=== PATIENT | female | born 1985 | race Caucasian/White ===

== ENCOUNTER 2022-07-01 02:48 | Observation (INO) ==
[2022-07-01] MEDS ORDERED: SODIUM CHLORIDE 0.9% 1000ML 1,000 ML IV STA (03:13)
[2022-07-01] MEDS ORDERED: FAMOTIDINE 20MG IV PUSH 20 MG/5 ML SYR IV STA (03:13)
[2022-07-01] MEDS ORDERED: ONDANSETRON INJ 2 MG/ML 2 ML VIAL IV STA (03:13)
--- NOTE | 2022-07-01 03:24 | Emergency Department Note ---
History of Present Illness General Chief complaint: Abdominal Pain Stated complaint: SEVERE ABDOMINAL PAIN Time Seen by Provider: 07/01/22 03:08 History of Present Illness Maximum Pain Intensity: 9 This 37-year-old female presents to the ER complaint of nausea vomiting abdominal pain and some diarrhea that has been intermittent for the past 3 weeks. Patient denies chest pain, dyspnea, fevers, flulike illness. No prior abdominal surgeries. Allergies Allergy/AdvReac Type Severity Reaction Status Date / Time No Known Allergies Allergy Unverified 07/01/22 10:25 Past Med/Surg History Social History Smoking Status: Never smoker Hx Alcohol Use: Yes Hx Substance Use: No Preferred Language: [place] Communication Ability: Effective Linseed Oil Temperer Required: No Beliefs That Will Affect Care: None Current Living Situation: Spouse Feels Safe at Home: Yes Assistive Devices: None Review of Systems A total of 10 systems reviewed and were otherwise negative Physical Exam Vital Signs Vital Signs - 24 hr 07/01/22 03:00 07/01/22 03:55 07/01/22 04:00 Temperature 36.0 C L Temperature Source Temporal Artery Scan Pulse Rate 59 L 57 L Pulse Rate [Apical] 55 L Respiratory Rate 18 16 Respiratory Depth Normal Blood Pressure 121/75 Blood Pressure [Right Arm] 117/75 Blood Pressure Mean 90 Blood Pressure Mean [Right Arm] 89 Pulse Oximetry 100 100 Oxygen Delivery Method Room Air Room Air Sepsis Recent Fever Within 48 Hours No Sepsis New/Unexplained Change in Mental Status N/A Sepsis Action Taken by Nursing No Action Required 07/01/22 05:30 Temperature Temperature Source Pulse Rate Pulse Rate [Apical] 60 Respiratory Rate 16 Respiratory Depth Blood Pressure Blood Pressure [Right Arm] 126/79 Blood Pressure Mean Blood Pressure Mean [Right Arm] 94 Pulse Oximetry 100 Oxygen Delivery Method Room Air Sepsis Recent Fever Within 48 Hours Sepsis New/Unexplained Change in Mental Status Sepsis Action Taken by Nursing VITALS: Vitals are noted on the nurse's note and reviewed by myself. Vital signs stable. GENERAL: Pleasant female, in no acute distress, nondiaphoretic, well-developed well-nourished. SKIN: The skin was without rashes, erythema, edema, or bruising. There is no tenting of the skin. Capillary reflex less than 2 seconds. HEAD: Normocephalic atraumatic. EARS: External auditory canals clear, tympanic membranes pearly newton without erythema or effusion bilaterally. EYES: Pupils equal round and reactive to light and accommodation. Conjunctivae without injection, sclerae without icterus. Extraocular movements intact. NOSE: Patent, turbinates without inflammation or discharge. No sinus tenderness. MOUTH: Mucous membranes mildly dry. Pharynx without erythema or exudate. Uvu la midline. Airway patent. Tongue does not deviate. NECK: Supple without nuchal rigidity. No lymphadenopathy. No thyromegaly. Cervical spine is nontender. No JVD. HEART: Regular rate and rhythm LUNGS: Clear to auscultation bilaterally without wheezes, rales or rhonchi. No retractions or accessory muscle use. ABDOMEN: Positive bowel sounds x 4. Normal tympanic percussion. Soft, tender m id abdomen, without masses or organomegaly. Arredondo sign negative. No guarding or rebound tenderness. No CVA tenderness MUSCULOSKELETAL: No muscle atrophy, erythema, or edema noted. NEURO: Patient was alert and oriented to person place and time. Normal sensation to light and sharp touch. No focal neurological deficits. Course Administered Medications Dextrose/Sodium Chloride (D5w And 1/2nss) 1,000 mls @ 125 mls/hr IV .Q8H JESSICA Stop: 07/31/22 08:43 Last Admin: 07/02/22 01:06 Dose: 125 mls/hr Documented By: Infusion: 07/02/22 01:06 Dose: 125 mls/hr Documented By: Admin: 07/01/22 17:24 Dose: 125 mls/hr Documented By: Infusion: 07/01/22 17:06 Dose: 125 mls/hr Documented By: [email or web address] Admin: 07/01/22 09:06 Dose: 125 mls/hr Documented By: [id number] Piperacillin Sod/Tazobactam (Sod 3.375 gm/ Dextrose) 115 mls @ 28.75 mls/hr IV Q8H JESSICA; Protocol Stop: 07/11/22 11:29 Last Infusion: 07/01/22 23:31 Dose: 0 mls/hr Documented By: Admin: 07/01/22 19:30 Dose: 28.8 mls/hr Documented By: Infusion: 07/01/22 16:05 Dose: 0 mls/hr Documented By: Admin: 04/17/23 12:00 Dose: 28.8 mls/hr Documented By: [id number] Ondansetron HCl (Ondansetron Inj 2 Mg/Ml 2 Ml Vial) 4 mg IV Q6H PRN PRN Reason: Nausea Stop: 07/31/22 08:43 Last Admin: 07/01/22 08:50 Dose: 4 mg Documented By: [id number] Discontinued Medications Sodium Chloride (Nss 1000ml) 1,000 mls @ 999 mls/hr IV .Q1H1M STA Stop: 07/01/22 04:13 Last Infusion: 07/01/22 04:52 Dose: 0 mls/hr Documented By: Admin: 07/01/22 03:41 Dose: 999 mls/hr Documented By: JULIO Famotidine (Pepcid 20mg Iv Push) 20 mg in 5 mls @ 2.5 mls/min IV NOW STA Stop: 07/01/22 03:14 Last Admin: 07/01/22 03:42 Dose: 2.5 mls/min Documented By: JULIO Piperacillin Sod/Tazobactam Sod (Zosyn) 4.5 gm in 120 mls @ 240 mls/hr IV NOW ONE Stop: 07/01/22 05:05 Last Infusion: 07/01/22 06:02 Dose: 0 mls/hr Documented By: Admin: 07/01/22 05:25 Dose: 240 mls/hr Documented By: JULIO Potassium Chloride (K Jeromy / Wtr) 10 meq in 100 mls @ 100 mls/hr IV Q1H JESSICA Stop: 07/01/22 10:43 Last Infusion: 07/01/22 11:30 Dose: 0 mls/hr Documented By: [id number] Admin: 07/01/22 10:24 Dose: 100 mls/hr Documented By: [id number] Infusion: 07/01/22 10:07 Dose: 100 mls/hr Documented By: [id number] Admin: 07/01/22 09:07 Dose: 100 mls/hr Documented By: [id number] Promethazine HCl 6.25 mg/ (Sodium Chloride) 50.25 mls @ 201 mls/hr IV NOW ONE Stop: 07/01/22 10:59 Last Infusion: 07/01/22 11:30 Dose: 0 mls/hr Documented By: [id number] Admin: 07/01/22 10:51 Dose: 201 mls/hr Documented By: [id number] Ioversol (Optiray 350 100ml) 100 ml IV ONCE ONE Stop: 07/01/22 04:50 Last Admin: 07/01/22 04:49 Dose: 83 ml Documented By: [email or web address] Morphine Sulfate (Morphine Sulfate 4 Mg/Ml 1 Ml Carp\Vial) 4 mg IV Q15M PRN PRN Reason: Pain Stop: 07/15/22 03:12 Last Admin: 07/01/22 04:25 Dose: 4 mg Documented By: Admin: 07/01/22 03:41 Dose: 4 mg Documented By: JULIO Ondansetron HCl (Ondansetron Inj 2 Mg/Ml 2 Ml Vial) 4 mg IV NOW STA Stop: 07/01/22 03:14 Last Admin: 07/01/22 03:41 Dose: 4 mg Documented By: JULIO Potassium Chloride (Potassium Chloride Crtab 20 Meq Tabcr) 20 meq PO NOW STA Stop: 07/01/22 08:45 Last Admin: 07/01/22 09:07 Dose: 20 meq Documented By: [id number] Medical Decision Making Medical Records Attestation: I reviewed the patient's medical records. Home Medications Current Medication List: was personally reviewed by me Laboratory Data Attestation: I reviewed the patient's lab results. 07/01/22 03:40 07/01/22 03:40 Lab Results 07/01/22 07/01/22 07/01/22 Range/Units 03:40 03:40 03:40 WBC 5.70 (4.8-10.8) K/ul RBC 4.01 L (4.20-5.40) M/uL Hgb 11.4 L (12.0-16.0) g/dl Hct 33.9 L (37.0-47.0) % MCV 84.5 (80.0-100.0) fL MCH 28.4 (25.0-34.0) pg MCHC 33.6 (32.0-36.0) g/dL RDW Std Deviation 38.8 (36.4-46.3) fL RDW Coeff of Hipolito 12.7 (11.5-14.5) % Plt Count 281 (130-400) K/uL MPV 11.4 (9.4-12.4) fL Immature Gran % (Auto) 0.4 % Neut % (Auto) 74.5 % Lymph % (Auto) 18.2 % Dixon % (Auto) 5.8 % Eos % (Auto) 0.4 % Baso % (Auto) 0.7 % Neut # (Auto) 4.25 (1.40-6.50) K/uL Lymph # (Auto) 1.04 L (1.2-3.4) K/uL Dixon # (Auto) 0.33 (0.11-0.59) K/uL Eos # (Auto) 0.02 (0-0.50) K/uL Baso # (Auto) 0.04 (0-0.2) K/uL Immature Gran # (Auto) 0.02 (0.01-0.20) K/uL Sodium 136 (136-145) mmol/L Potassium 3.3 L (3.5-5.1) mmol/L Chloride 108 H (98-107) mmol/L Carbon Dioxide 22 (21-32) mmol/L Anion Gap 6 (3-11) BUN 12 (6-23) mg/dl Creatinine 0.79 (0.6-1.2) mg/dl Est Cr Clr Drug Dosing 100.9 ml/min Est GFR ( Amer) 110.1 ml/min Est GFR (Non-Af Amer) 95.0 ml/min BUN/Creatinine Ratio 15.2 (10-20) Glucose 130 H (70-99(Fasting)) mg/dl Calcium 9.0 (8.6-10.3) mg/dl Total Bilirubin 2.2 H (0.2-1.0) mg/dl AST 241 H (13-39) U/L ALT 170 H (7-52) U/L Alkaline Phosphatase 191 H (34-104) U/L Total Protein 6.8 (6.0-8.3) gm/dl Albumin 3.9 (3.4-5.0) gm/dl Globulin 2.9 (2.5-4.0) gm/dl Albumin/Globulin Ratio 1.3 (0.9-2) Lipase 35 (11-82) U/L HCG, Qual Negative (Negative) Urine Color Urine Appearance (Clear) Urine pH (4.5-7.5) Ur Specific [place] (1.000-1.030) Urine Protein (Negative) Urine Glucose (UA) (Negative) Urine Ketones (Negative) Urine Blood (Negative) Urine Nitrite (Negative) Urine Bilirubin (Negative) Urine Urobilinogen (Negative) Ur Leukocyte Esterase (Negative) Urine WBC (Auto) (0-5) /hpf Urine RBC (Auto) (0-4) /hpf U Hyaline Cast (Auto) (0-5) /lpf U Epithel Cells (Auto) (0-5) /lpf Urine Bacteria (Auto) (Negative) Urine Crystals Calcium Oxalate Crystal (None Prsent) SARS-CoV-2, RNA, NAAT (NEGATIVE) 07/01/22 07/01/22 Range/Units 04:00 05:20 WBC (4.8-10.8) K/ul RBC (4.20-5.40) M/uL Hgb (12.0-16.0) g/dl Hct (37.0-47.0) % MCV (80.0-100.0) fL MCH (25.0-34.0) pg MCHC (32.0-36.0) g/dL RDW Std Deviation (36.4-46.3) fL RDW Coeff of Hipolito (11.5-14.5) % Plt Count (130-400) K/uL MPV (9.4-12.4) fL Immature Gran % (Auto) % Neut % (Auto) % Lymph % (Auto) % Dixon % (Auto) % Eos % (Auto) % Baso % (Auto) % Neut # (Auto) (1.40-6.50) K/uL Lymph # (Auto) (1.2-3.4) K/uL Dixon # (Auto) (0.11-0.59) K/uL Eos # (Auto) (0-0.50) K/uL Baso # (Auto) (0-0.2) K/uL Immature Gran # (Auto) (0.01-0.20) K/uL Sodium (136-145) mmol/L Potassium (3.5-5.1) mmol/L Chloride (98-107) mmol/L Carbon Dioxide (21-32) mmol/L Anion Gap (3-11) BUN (6-23) mg/dl Creatinine (0.6-1.2) mg/dl Est Cr Clr Drug Dosing ml/min Est GFR ( Amer) ml/min Est GFR (Non-Af Amer) ml/min BUN/Creatinine Ratio (10-20) Glucose (70-99(Fasting)) mg/dl Calcium (8.6-10.3) mg/dl Total Bilirubin (0.2-1.0) mg/dl AST (13-39) U/L ALT (7-52) U/L Alkaline Phosphatase (34-104) U/L Total Protein (6.0-8.3) gm/dl Albumin (3.4-5.0) gm/dl Globulin (2.5-4.0) gm/dl Albumin/Globulin Ratio (0.9-2) Lipase (11-82) U/L HCG, Qual (Negative) Urine Color Dark Yellow Urine Appearance Cloudy A (Clear) Urine pH 5.0 (4.5-7.5) Ur Specific [place] 1.026 (1.000-1.030) Urine Protein Trace H (Negative) Urine Glucose (UA) Negative (Negative) Urine Ketones 1+ H (Negative) Urine Blood Trace H (Negative) Urine Nitrite Positive A (Negative) Urine Bilirubin 2+ H (Negative) Urine Urobilinogen Negative (Negative) Ur Leukocyte Esterase 1+ H (Negative) Urine WBC (Auto) 1-5 (0-5) /hpf Urine RBC (Auto) 0-4 (0-4) /hpf U Hyaline Cast (Auto) 5-10 H (0-5) /lpf U Epithel Cells (Auto) >30 H (0-5) /lpf Urine Bacteria (Auto) 1+ H (Negative) Urine Crystals Not Reportable Calcium Oxalate Crystal Present A (None Prsent) SARS-CoV-2, RNA, NAAT NEGATIVE (NEGATIVE) Imaging Data Attestation: I personally reviewed and interpreted this imaging study as follows: MDM Narrative Prior records/ancillary studies reviewed. Triage Nursing notes reviewed. Additional history obtained from the family. The patient's history was concerning for nausea, vomiting, diarrhea, and abdominal pain. Differential diagnosis: Etiologies such as gastroenteritis, food borne illness, infections, appendicitis, diverticulitis, inflammatory bowel disease, obstruction, GI bleed, biliary pathology, as well as others were entertained. Physical examination findings: As above. Abdominal examination revealed tenderness. Vital signs reviewed and revealed stable. ER treatment provided: IV hydration 1 L NSS. Zofran Pepcid morphine were ordered Zosyn for possible obstructive process of the biliary tree On reassessment the patient felt better. Patient was tolerating p.o. intake. Diagnostics interpretation by me: The labs Independently Interpreted by myself revealed no worrisome leukocytosis Elevated LFTs and T. bili Imaging studies: Imaging was reviewed and pending at time of admission. Consultation: A consultation was placed with the hospitalist. The case was discussed and diagnostics were reviewed. The patient was evaluated in the ER for further treatment. A consultation was placed with surgery and been did evaluate the patient. Patient was admitted to the medical service This appears to be consistent with cholelithiasis with concerns for obstruction. Patient might have a stone in the biliary tree. Medicine and surgery were consulted. Patient given antibiotics. Labs and diagnostics were independent of myself. Patient was admitted to the medical team. By the evaluation outlined above emergent etiologies such as appendicitis, diverticulitis, obstruction, cardiac sources, mesenteric ischemia, aortic pathology, inflammatory bowel disease, renal colic, PUD, UTI, as well as others were deemed relatively unlikely. The pt informed about the findings as listed above. All questions were answered and pleased with the treatment. The chart was completed utilizing [employer] Speech voice recognition software. Grammatical errors, random word insertions, pronoun errors, and incomplete sentences are an occassional consequence of this system due to software limitations, ambient noise, and hardware issues. Any formal questions or concerns about the content, text, or information contained within the body of this dictation should be directly addressed to the physician assistant service manager for clarification. Impression & Plan Biliary colic, Elevated liver enzymes, Abdominal pain, acute Discharge Plan Visit Data Chief Complaint: Abdominal Pain Stated Complaint: SEVERE ABDOMINAL PAIN ED Provider: Zachariah Pires ED Midlevel Provider: Afsaneh Rosa Discharge Problem: Biliary colic, Elevated liver enzymes, Abdominal pain, acute Patient Disposition: Admitted As Inpatient Condition: Good Discharge Instructions Interventions: ED Discharge Assessment Last Done: 07/01/22 08:23
[2022-07-01] MEDS: MoRPHine SULFATE 4 MG/ML 1 ML CARP\\VIAL IV PRN ×2 (03:41→04:25)
[2022-07-01 04:02] LABS: Basophils # (auto) 0.04 K/uL (0-0.2); Basophils % (auto) 0.7 %; Eosinophils # (auto) 0.02 K/uL (0-0.50); Eosinophils % (auto) 0.4 %; Hematocrit (blood only) 33.9 % (37.0-47.0); Hemoglobin 11.4 g/dl (12.0-16.0); Immature Granulocytes # (auto) 0.02 K/uL (0.01-0.20); Immature Granulocytes % (auto) 0.4 %; Lymphocytes # (auto) 1.04 K/uL (1.2-3.4); Lymphocytes % (auto) 18.2 %; Mean Corpuscular Hemoglobin 28.4 pg (25.0-34.0); Mean Corpuscular Hgb Conc 33.6 g/dL (32.0-36.0); Mean Corpuscular Volume 84.5 fL (80.0-100.0); Mean Platelet Volume 11.4 fL (9.4-12.4); Monocytes # (auto) 0.33 K/uL (0.11-0.59); Monocytes % (auto) 5.8 %; Neutrophils # (auto) 4.25 K/uL (1.40-6.50); Neutrophils % (auto) 74.5 %; Platelet Count 281 K/uL (130-400); RDW Coefficient of Variation 12.7 % (11.5-14.5); RDW Standard Deviation 38.8 fL (36.4-46.3); Red Blood Count 4.01 M/uL (4.20-5.40)
[2022-07-01 04:08] LABS: Appearance Urine Cloudy (Clear); Bacteria Urine Automated 1+ (Negative); Bilirubin Urine 2+ (Negative); Blood Urine Trace (Negative); Color Urine Dark Yellow; Epithelial Cell Urine Auto >30 /lpf (0-5); Glucose Urine UA Negative (Negative); Ketones Urine 1+ (Negative); Leukocyte Esterase Urine 1+ (Negative); Nitrite Urine Positive (Negative); Protein Urine Trace (Negative); Specific Gravity Urine 1.026 (1.000-1.030); Urobilinogen Urine Negative (Negative)
[2022-07-01 04:19] LABS: Albumin Globulin Ratio 1.3 (0.9-2); Albumin Level 3.9 gm/dl (3.4-5.0); BUN Creatinine Ratio 15.2 (10-20); Bilirubin,Total 2.2 mg/dl (0.2-1.0); Creatinine Clr Calc Pharmacy 100.9 ml/min; Est GFR (African American) 110.1 ml/min; Globulin 2.9 gm/dl (2.5-4.0); Potassium 3.3 mmol/L (3.5-5.1); Total Protein 6.8 gm/dl (6.0-8.3)
[2022-07-01 04:21] LABS: Calcium Oxalate Crystals Urine Present (None Prsent); RBC Urine Automated 0-4 /hpf (0-4)
[2022-07-01 04:23] LABS: Pregnancy Test, Serum Negative (Negative)
[2022-07-01] MEDS ORDERED: PIPERACILLIN/TAZOBACTAM 4.5 GM/120 ML BAG IV ONE (04:36)
[2022-07-01] MEDS ORDERED: OPTIRAY 350 100ml IV ONE (04:49)
--- NOTE | 2022-07-01 05:52 | Surgery Consultation ---
Date of Consultation July 01, 2022 Assessment & Plan (1) Biliary colic: I discussed with the treating clinician in the emergency department and the patient is being admitted on the hospitalist service. We recommend proceeding as follows: Provide analgesics Provide antiemetics Implement n.p.o. status Provide IV fluid for hydration Continue antibiotics in the form of Zosyn. Follow serial labs I discussed with the admitting hospitalist and he notes that he is planning on ordering an MRCP secondary to the patient's elevated LFTs and also enlisting the help of gastroenterology. I had a discussion with the patient concerning the need for possible cholecystectomy but outlined with her that we need to obtain the above studies and consultations prior to entertaining surgery. I discussed with the patient that if she has choledocholithiasis this will need to be addressed prior to undergoing cholecystectomy. We will await the results of pending studies with further recommendations to follow. Would recommend using only SCDs for DVT prevention until timing of any procedural intervention has been ascertained Supervising Physician Co-Signing Physician Notes I personally saw and evaluated the patient with Raul Stewart PA-C and agree with the assessment plan. 37-year-old female with acute cholecystitis, elevated LFTs concerning for choledocholithiasis Her ultrasound and CT images were personally viewed by myself, she does have distended gallbladder and gallstones however has no CBD dilation Due to her elevated LFTs I think getting GI involved is appropriate, and MRCP is already been ordered by the hospitalist Keep n.p.o., give IV antibiotics and IV fluids We will tentatively plan on a laparoscopic cholecystectomy, possible open tomorrow History of Present Illness Reason for Consultation: Abdominal pain History of Present Illness This is a 37-year-old female who presented to the emergency department secondary to abdominal pain. The patient notes that for several weeks she has been having some abdominal pain in her upper abdomen sometimes related but not always relat ed to meals. She notes that when the pain occurs she usually just drinks some liquids and the pain usually dissipates within 2 hours. Last evening she notes that the pain recurred and was much worse than usual and did not dissipate in the usual fashion so she presented to the emergency department. She had associated nausea and vomiting but denies any fevers, shakes, or chills. She did not note any radiation of the pain and did not report any palliative or provocative factors. She notes that she has never had abdominal surgery in the past. The patient does report that the only medicine she is taking is a weight loss drug and since October she has lost approximately 75 pounds. The patient does report that she leads an active lifestyle and runs 3 miles several times per week and does not have any limiting factors such as chest pain or shortness of breath with this activity. Since arrival to the hospital the patient has had labs and imaging which independent reviewed. His CBC revealed white blood cell count was normal. Hemoglobin hematocrit were 11.4 and 33.9. Platelet count was normal. Chemistry profile showed sodium was 136 with a potassium of 3.3. BUN and creatinine were both normal. The patient was noted to have elevated total bilirubin at 2.2 with an AST of 241, and ALT of 170, and alkaline phosphatase of 191. A lipase was nonelevated and a test was negative. Urinalysis showed cloudy urine with 1+ leukocyte Estrace, positive for nitrites, and only 1-5 white blood cells per high-power field. There was 1+ bacteria on the study. A COVID test is pend ing. Imaging included an ultrasound where patient was noted to have gallstones with a thickened gallbladder wall and pericholecystic fluid. The patient also underwent a CT scan of the abdomen. On the abdominal CT scan the gallbladder did appear distended, and cholecystitis could not be excluded. At the time of my interview the patient was resting comfortably in bed. Her pain had improved somewhat since arrival to the emergency department. 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 Required: No Beliefs That Will Affect Care: None Current Living Situation: Spouse Feels Safe at Home: Yes Review of Systems Constitutional: no fever and no chills Eyes: + corrective lenses Ear, Nose, Mouth, Throat: no ear pain Respiratory: no cough and no dyspnea Cardiovascular: no chest pain Gastrointestinal: as per Subjective / HPI, + abdominal pain and + nausea Genitourinary: no dysuria Musculoskeletal: no back pain Integumentary: no rash Neurologic: no localized weakness Physical Exam Constitutional: WD/WN, vitals as above Eyes: + anicteric sclerae ENMT: Ears: no hearing impairment and no external ear abnormality Mouth: + oropharynx abnormality Neck: trachea midline Respiratory: normal respiratory effort, lungs clear to auscultation Cardiovascular: Rate/Rhythm: regular rate and regular rhythm Gastrointestinal (Abdomen): Abdomen is soft and nondistended. It is nonrigid. Bowel sounds are present. There is no rebound tenderness or guarding but pain is noted with deep palpation in the right upper quadrant. Musculoskeletal: No calf tenderness. No lower extremity edema Skin: no rashes Neurologic: moves all extremities Psychiatric: A+Ox3, euthymic affect Results & Data Vital Signs (Past 12 Hours) Vital Signs Temp Pulse Pulse Resp BP BP Pulse Ox 07/01/22 05:30 60 16 126/79 100 07/01/22 04:00 57 L 07/01/22 03:55 55 L 16 117/75 100 07/01/22 03:00 36.0 C L 59 L 18 121/75 100 O2 Del Method 07/01/22 05:30 Room Air 07/01/22 04:00 07/01/22 03:55 Room Air 07/01/22 03:00 Room Air PG Care Time/CCT Total # of Minutes Spent Total Time Spent with Patient: Total time spent is greater than 50% in coordination of care (as documented) at patient's floor/unit and/or counseling patient: Coding Level of Care Code 75569 IN/OBS CONSULT LVL 5,80M Diagnoses Biliary colic K80.50
--- NOTE | 2022-07-01 06:57 | CT Scan Report ---
CT OF THE ABDOMEN AND PELVIS WITH CONTRAST CLINICAL HISTORY: Mid abdominal pain. COMPARISON STUDY: None. TECHNIQUE: Following IV administration of 83 mL of Optiray, axial images of the abdomen and pelvis we re obtained from the lung bases to the proximal femurs. Images were reviewed in the axial, sagittal, and coronal planes. IV contrast was administered without complication. Automated exposure control wa s utilized for the study. A dose lowering technique was utilized adhering to the principles of ALARA . CT DOSE: 349.04 mGy.cm FINDINGS: Lung bases are unremarkable. No pneumatosis, free air or portal venous gas is present. Karen portal edema is noted. There is no biliary or pancreatic ductal dilatation. Spleen, adrenal glands, k idneys and pancreas are unremarkable. The gallbladder is mildly distended. There is mild gallbladder wall thickening. There is no evidence for a bowel obstruction. The appendix is partially visualized. Visualized portions are normal. Suspected dominant follicle within the right ovary is noted. Multiple uterine lesions are noted, including a 3.1 cm fundal hypodense lesion with peripheral enhancement. T here is also a 3.2 cm right neural lesion within the uterine body. The uterus is mildly enlarged. The re are no acute fractures. Major vasculature is patent. IMPRESSION: 1. Mild gallbladder distention with mild gallbladder wall thickening. Acute cholecystitis cannot be e xcluded. A hepatobiliary scan could be obtained as indicated. 2. Periportal edema. No definite biliary ductal dilatation. 3. No bowel obstruction. Appendix partially obscured but visualized portions normal. 4. Uterine lesions which statistically reflect fibroids. Nonemergent pelvic ultrasound is recommended . ACT 112: Negative or not required by law. Electronically signed by: Jose Eduardo Sanchez M.D. 07/01/2022 6:54 AM
--- NOTE | 2022-07-01 06:58 | Ultrasound Report ---
US gallbladder CLINICAL HISTORY: ruq pain, elevated lfts COMPARISON STUDY: CT of the abdomen and pelvis July 01, 2022 of 4:45 AM. FINDINGS: No hepatic lesions are identified. No biliary ductal dilatation is noted. Caliber of the co mmon bile duct is normal, measuring 6 mm. Multiple gallstones are noted within the gallbladder. There are stones within the gallbladder neck. The gallbladder is distended. Gallbladder wall thickening an d pericholecystic fluid is noted. The wall is edematous. The wall measures 3 mm in thickness. There i s also sludge within the gallbladder. Suspected adenomyomatosis within the gallbladder wall is noted. Sonographic Arredondo sign could not be assessed for in this patient. There is no right hydronephrosis. A 5 mm echogenic lesion within the cortex of the midpole the right kidney is indeterminate but may r eflect a small angiomyolipoma. No correlate is identified on the CT. IMPRESSION: 1. Cholelithiasis with mild gallbladder wall thickening and trace pericholecystic fluid. Mildly diste nded gallbladder. Acute cholecystitis cannot be excluded. A hepatobiliary scan could be obtained as i ndicated. 2. No biliary ductal dilatation. ACT 112: Negative or not required by law. Electronically signed by: Jose Eduardo Sanchez M.D. 07/01/2022 6:57 AM
--- NOTE | 2022-07-01 08:40 | History and Physical Report ---
DATE OF ADMISSION: 07/01/2022. CHIEF COMPLAINT: Abdominal pain. HISTORY OF PRESENT ILLNESS: A 37-year-old female with no significant past medical history who presents with severe abdominal pain in the right upper abdomen radiating to the flank region. Patient states pain was going on and off for some time, but tonight it became severe associated with nausea and vomiting that is the reason she came to the hospital. She also has some constipation. Denies any blood in stool or black stools. Normal bladder movements. No hematuria. Currently resting and hemodynamically stable. Denies any chest pain, no shortness of breath. No cough. Has some runny nose from allergies. No sore throat, no headache, no blurred visions. ALLERGIES: No known drug allergies. PAST MEDICAL HISTORY: None. PAST SURGICAL HISTORY: None. MEDICATIONS: She is taking medication to lose weight. FAMILY HISTORY: No significant family history. SOCIAL HISTORY: Quit smoking 15 years ago. Alcohol, social drinking. REVIEW OF SYSTEMS: As per HPI. Rest of review of systems is negative. PHYSICAL EXAMINATION: GENERAL: The patient is of moderate build, not in acute distress. VITAL SIGNS: Temperature 36, pulse 60, respiratory rate 16, blood pressure 126/79, oxygen 100% on room air. HEENT: Pupils equal, round and reactive to light. Oral mucosa moist. NECK: No JVD or neck masses. CARDIOVASCULAR: S1 and S2 heard. Regular rate and rhythm. No murmur, no gallop. RESPIRATORY SYSTEM: Normal AP diameter. No accessory muscle use. No wheezing, no crackles. ABDOMEN: Soft, bowel sounds present, nontender, no distention. CENTRAL NERVOUS SYSTEM: Cranial nerves II-XII grossly intact, nonfocal. EXTREMITIES: No edema, no erythema. LABORATORY DATA: WBC 5.7, hemoglobin 11.4, hematocrit 33.9, platelets 281. Sodium 136, potassium 3.3, chloride 108, CO2 of 22, BUN 12, creatinine 0.7, serum glucose 113, calcium 9, total bilirubin 2.2, AST 241, ALT 170, alkaline phosphatase 191, lipase 35. HCG qualitative negative. Urinalysis, positive for nitrites and leukocyte esterase and +1 bacteria. IMAGING DATA: CT abdomen and pelvis:1. Mild gallbladder distention with mild gallbladder wall thickening. Acute cholecystitis cannot be excluded. A hepatobiliary scan could be obtained as indicated. 2. Periportal edema. No definite biliary ductal dilatation. 3. No bowel obstruction. Appendix partially obscured but visualized portions normal. 4. Uterine lesions which statistically reflect fibroids. Nonemergent pelvic ultrasound is recommended. Gallbladder ultrasound results are :1. Cholelithiasis with mild gallbladder wall thickening and trace pericholecystic fluid. Mildly distended gallbladder. Acute cholecystitis cannot be excluded. A hepatobiliary scan could be obtained as indicated. 2. No biliary ductal dilatation. ASSESSMENT AND PLAN: This is a 37-year-old female who presents with abdominal pain and found to have elevated LFTs, urinary tract infection and possible cholecystitis 1. Abdominal pain, possible cholecystitis and elevated lft's . Surgery consulted.Will order MRCP and GI consult. Will keep patient n.p.o., IV fluids, IV Zosyn, IV antiemetics prn, IV Dilaudid p.r.n. Monitor in the medical floor.Will follow repeat labs 2. Urinary tract infection on Zosyn as above. We will follow the cultures. 3. Uterine lesions. Fibroids? Needs followup. 4. Deep venous thrombosis prophylaxis, sequential compression devices for now. DISPOSITION: Closely monitor in medical floor. Expect to discharge home and follow with family doctor. Job ID: [id number] [facility] CLINICMilana
[2022-07-01] MEDS ORDERED: HYDROmorphone INJ 0.5 MG/0.5 ML SYR IV PRN (08:44)
[2022-07-01] MEDS ORDERED: ACETAMINOPHEN 325 MG TAB PO PRN (08:44)
[2022-07-01] MEDS ORDERED: POTASSIUM CHLORIDE CRTAB 20 MEQ TABCR PO STA (08:44)
[2022-07-01] MEDS ORDERED: ONDANSETRON INJ 2 MG/ML 2 ML VIAL IV PRN (08:44)
[2022-07-01] MEDS: D5W AND 1/2NSS 1,000 ML IV SCH ×2 (09:06→17:24)
[2022-07-01] MEDS: POTASSIUM CHLORIDE / WTR 10 MEQ/100 ML PLCT IV SCH ×2 (09:07→10:24)
[2022-07-01] MEDS ORDERED: Patient's ALLERGY Info needs ENTERED SCH (10:15)
[2022-07-01] MEDS ORDERED: PROMETHAZINE HCL 6.25 MG in SODIUM CHLORIDE 0.9% 50 ML IV ONE (10:45)
--- NOTE | 2022-07-01 10:45 | Gastrointestinal Consultation ---
Date of Consultation July 01, 2022 Assessment & Plan (1) Elevated liver enzymes: (2) Abdominal pain, acute: PT is a 37 yo female w symptoms of upper abd pain, n/v thats been intermittent over the last month but worse after dinner last night. LFTs up, normal lipase. Abd imaging studies w CT and US showed gallstones, some on gallbladder neck, gallbladder wall thickening. CBD 6mm. - Will cancel MRCP - Plan for EUS +/- ERCP by Dr. Juan R Cortes tomorrow - Surgery following, planning for lap dayo tomorrrow - Trend LFTs - Continue IV antibx Supervising Physician Co-Signing Physician Notes Attending attestation I have seen, examined this patient, and agree with the findings and above by our mid-level provider RUSTY Alvares, with the following additions: Classical bilary colic No signs of cholangitis Plan for EUS- +/- ERCP tomorrow History of Present Illness Reason for Consultation: Elevated LFTs, gallstones Requesting Physician: Dr. Howard Krishnan Attending Physician: Dr. Jose C Rankin History of Present Illness Patient is a 37 years old female who presented yesterday with abdominal pain mostly in the upper regions. She states that she has been getting her right upper quadrant abdominal pain that is intermittent for over a month now. Usually she will take omeprazole and symptoms would improve. Last night after dinner which consisted of meat loaf she started having severe right upper quadrant abdominal pain along with nausea and vomiting. Denies any fever or chills, states that she did have some constipation but moved bowels last night without any rectal bleeding or dark tarry stools. She has been taking Mounjaro for weight loss purposes and lost 75 pounds since October. Upon evaluation she has no leukocytosis, blood ct stable. LFTs up: Tbili 2.2, AST 241, ALT 170, alk phose 191, lipase 35. CT and US abd showed signs of cholelithiasis, gallbladder neck stone, CBD 6mm, gallbladder is distended. Surgery evaluated her and planning for lap dayo tomorrow. Allergies Allergy/AdvReac Type Severity Reaction Status Date / Time No Known Allergies Allergy Unverified 07/01/22 10:25 Patient History Social History Smoking Status: Never smoker Hx Alcohol Use: Yes Hx Substance Use: No Preferred Language: German Communication Ability: Effective Mobile Home Installer Required: No Beliefs That Will Affect Care: None Current Living Situation: Spouse Feels Safe at Home: Yes Assistive Devices: None Review of Systems Review of Systems: All systems reviewed & are unremarkable except as noted in HPI & below Physical Exam Constitutional: WD/WN, vitals as above well groomed and cooperative; + uncomfortable (vomiting) Eyes: PERRL, conjunctivae normal, anicteric sclerae ENMT: external ear and nose normal, oropharynx normal Respiratory: normal respiratory effort, lungs clear to auscultation Cardiovascular: RRR, no murmur, no edema Gastrointestinal (Abdomen): TTP RUQ, soft, BS hypoactive Skin: no rashes, warm and dry no jaundice Psychiatric: A+Ox3, euthymic affect Lymphatic: no lymphedema Results & Data Vital Signs (Past 12 Hours) Vital Signs Temp Pulse Pulse Pulse Resp BP BP 07/01/22 09:44 07/01/22 08:53 36.3 C L 55 L 16 100/61 07/01/22 08:26 89 17 95/63 L 07/01/22 08:00 56 L 17 07/01/22 08:09 74 07/01/22 05:30 60 16 126/79 07/01/22 04:00 57 L 07/01/22 03:55 55 L 16 117/75 07/01/22 03:00 36.0 C L 59 L 18 121/75 Pulse Ox O2 Del Method 07/01/22 09:44 Room Air 07/01/22 08:53 100 Room Air 07/01/22 08:26 100 Room Air 07/01/22 08:00 100 Room Air 07/01/22 08:09 07/01/22 05:30 100 Room Air 07/01/22 04:00 07/01/22 03:55 100 Room Air 07/01/22 03:00 100 Room Air
[2022-07-01] MEDS: PIPERACILLIN/TAZOBACTAM 3.375 GM in DEXTROSE 5% 100 ML IV SCH ×2 (12:00→19:30)
[2022-07-02] MEDS: D5W AND 1/2NSS 1,000 ML IV SCH ×3 (01:06→16:54)
[2022-07-02] MEDS: PIPERACILLIN/TAZOBACTAM 3.375 GM in DEXTROSE 5% 100 ML IV SCH ×3 (03:43→17:58)
[2022-07-02 06:37] LABS: Basophils # (auto) 0.06 K/uL (0-0.2); Eosinophils # (auto) 0.07 K/uL (0-0.50); Eosinophils % (auto) 1.2 %; Hematocrit (blood only) 31.2 % (37.0-47.0); Hemoglobin 10.1 g/dl (12.0-16.0); Immature Granulocytes # (auto) 0.02 K/uL (0.01-0.20); Immature Granulocytes % (auto) 0.3 %; Lymphocytes # (auto) 2.33 K/uL (1.2-3.4); Lymphocytes % (auto) 38.4 %; Mean Corpuscular Hemoglobin 27.9 pg (25.0-34.0); Mean Corpuscular Hgb Conc 32.4 g/dL (32.0-36.0); Mean Corpuscular Volume 86.2 fL (80.0-100.0); Mean Platelet Volume 11.7 fL (9.4-12.4); Monocytes # (auto) 0.47 K/uL (0.11-0.59); Monocytes % (auto) 7.8 %; Neutrophils # (auto) 3.11 K/uL (1.40-6.50); Neutrophils % (auto) 51.3 %; Platelet Count 241 K/uL (130-400); RDW Coefficient of Variation 12.9 % (11.5-14.5); RDW Standard Deviation 40.9 fL (36.4-46.3); Red Blood Count 3.62 M/uL (4.20-5.40); White Blood Count 6.06 K/ul (4.8-10.8)
[2022-07-02 06:47] LABS: Albumin Level 3.2 gm/dl (3.4-5.0); BUN Creatinine Ratio 7.3 (10-20); Bilirubin Direct 0.3 mg/dl (0-0.2); Bilirubin,Total 1.6 mg/dl (0.2-1.0); Calcium 8.2 mg/dl (8.6-10.3); Creatinine Clr Calc Pharmacy 97.2 ml/min; Est GFR (African American) 105.2 ml/min; Est GFR (Non-African American) 90.8 ml/min; Magnesium 1.9 mg/dl (1.7-2.4); Potassium 3.5 mmol/L (3.5-5.1); Total Protein 5.6 gm/dl (6.0-8.3)
[2022-07-02] MEDS ORDERED: INDOMETHACIN 50 MG SUPP PR SCH (08:00)
--- NOTE | 2022-07-02 08:44 | Surgery Progress Note ---
Date of Service July 02, 2022 Assessment & Plan (1) Acute cholecystitis: Plan: Her LFTs are trending down, GI planning to do EUS/ERCP today We will plan on laparoscopic cholecystectomy, possible open, possible intraoperative cholangiogram subsequently Consent was obtained, risk discussed including bleeding, infection, bile leak, ductal injury (2) Elevated liver enzymes: Admission and Anticipated Discharge Date Admission Date: July 01, 2022 Subjective Patient seen and examined. Pain improved. Afebrile. NPO. Review of Systems Constitutional: no fever and no chills Physical Exam Constitutional: WD/WN, vitals as above Gastrointestinal (Abdomen): Inspection/Auscultation: abdomen normal to inspection; abdomen not distended Percussion/Palpation: + abdomen tender (Right upper quadrant), + guarding and abdomen soft; abdomen not rigid and no hernia Results & Data Vital Signs (Past 12 Hours) Vital Signs Temp Pulse Resp BP Pulse Ox O2 Del Method 07/02/22 07:42 36.7 C 69 16 103/66 100 Room Air 07/01/22 21:57 36.9 C 81 16 101/63 94 Room Air PG Care Time/CCT Total # of Minutes Spent Total Time Spent with Patient: Total time spent is greater than 50% in coordination of care (as documented) at patient's floor/unit and/or counseling patient: Coding Level of Care Code 05461 SUB INP/OBS CARE 04/10MIN Diagnoses Acute cholecystitis K81.0 Elevated liver enzymes R74.8
--- NOTE | 2022-07-02 09:44 | Gastroenterology Progress Note ---
I saw and evaluated the patient. We are planning to do further evaluation for suspected choledocholithiasis with upper endoscopy endoscopic ultrasound and possible ERCP. We have discussed the risks to include bleeding infection perforation pain pancreatitis and failed biliary cannulation Date of Service July 02, 2022 Assessment & Plan (1) Elevated liver enzymes: (2) Abdominal pain, acute: Plan: PT is a 37 yo female w symptoms of upper abd pain, n/v thats been intermittent over the last month but worse after dinner last night. LFTs up, normal lipase. Abd imaging studies w CT and US showed gallstones, some on gallbladder neck, gallbladder wall thickening. CBD 6mm. LFTs trending down, she is symptomatically improved. - Cancelled MRCP - Keep NPO - Plan for EUS +/- ERCP by Dr. Juan R Cortes; followed by tia oshea by Dr. Manpreet Javier in OR today - Trend LFTs - Continue IV antibx Admission and Anticipated Discharge Date Admission Date: July 01, 2022 Subjective Pt reports abd pain is improved, no n/v. Review of Systems Review of Systems: All systems reviewed & are unremarkable except as noted in HPI & below Physical Exam Constitutional: WD/WN, vitals as above well groomed, cooperative and comfortable Eyes: PERRL, conjunctivae normal, anicteric sclerae ENMT: external ear and nose normal, oropharynx normal Respiratory: normal respiratory effort, lungs clear to auscultation Cardiovascular: RRR, no murmur, no edema Gastrointestinal (Abdomen): BS hypoactive, TTP epigastric, soft Skin: no rashes, warm and dry no jaundice Psychiatric: A+Ox3, euthymic affect Lymphatic: no lymphedema Results & Data Vital Signs (Past 12 Hours) Vital Signs Temp Pulse Resp BP Pulse Ox O2 Del Method 07/02/22 07:42 36.7 C 69 16 103/66 100 Room Air 07/01/22 21:57 36.9 C 81 16 101/63 94 Room Air
--- NOTE | 2022-07-02 10:33 | Hospitalist Progress Note ---
Date of Service July 02, 2022 Assessment & Plan (1) Acute cholecystitis: (2) Elevated liver enzymes: (3) Abdominal pain, acute: (4) Biliary colic: Plan: This is a 37-year-old female who presents with RUQ abdominal pain and found to have elevated LFTs, urinary tract infection and possible cholecystitis 1. Abdominal pain, possible cholecystitis and elevated lft's . Surgery and GI consulted. Will keep patient n.p.o., IV fluids, IV Zosyn, IV antiemetics prn, IV Dilaudid p.r.n. Monitor in the medical floor.Will follow repeat labs AST, ALT trending dowm, tbili trending down Plan for ERCP/ cholecystectomy today (07/02) Today pt is feeling better, abdominal pain is not as severe, and nausea vomiting has resolved. She has been n.p.o. 2. Urinary tract infection on Zosyn as above. We will follow the cultures. 3. Uterine lesions. Fibroids? Needs followup. DVT prophylaxis, sequential compression devices for now. DISPOSITION: Closely monitor in medical floor. Admission and Anticipated Discharge Date Admission Date: July 01, 2022 Subjective Pt seen in follow up of RUQ pain Overnight pt says she felt better, right upper quadrant pain improved, no nausea vomiting She has been n.p.o. Continued on IV antibiotic Currently working on her computer She is alert oriented, answering appropriately. Denies any fevers chills, chest pain shortness of breath. Review of Systems Review of Systems: All systems reviewed & are unremarkable except as noted in Subjective Physical Exam Physical Exam: GENERAL:slim young F not in acute distress. HEENT: NC/AT. EOMI. Pupils equal, round and reactive to light. Oral mucosa moist. NECK: No JVD or neck masses. CARDIOVASCULAR: S1 and S2 heard. Regular rate and rhythm. No murmur, no gallop. RESPIRATORY: Normal AP diameter. No accessory muscle use. No wheezing, no crackles. ABDOMEN: Soft, bowel sounds present, nontender, no distention. NEURO:Awake alert oriented, speech fluent, moves extremities EXTREMITIES: No edema, no erythema. Results & Data Results & Data Vital Signs (Past 12 Hours) Vital Signs Temp Pulse Resp BP Pulse Ox O2 Del Method 07/02/22 07:42 36.7 C 69 16 103/66 100 Room Air Laboratory Results 07/02/22 07/02/22 Range/Units 05:47 05:47 WBC 6.06 (4.8-10.8) K/ul RBC 3.62 L (4.20-5.40) M/uL Hgb 10.1 L (12.0-16.0) g/dl Hct 31.2 L (37.0-47.0) % MCV 86.2 (80.0-100.0) fL MCH 27.9 (25.0-34.0) pg MCHC 32.4 (32.0-36.0) g/dL RDW Std Deviation 40.9 (36.4-46.3) fL RDW Coeff of Hipolito 12.9 (11.5-14.5) % Plt Count 241 (130-400) K/uL MPV 11.7 (9.4-12.4) fL Immature Gran % (Auto) 0.3 % Neut % (Auto) 51.3 % Lymph % (Auto) 38.4 % Dewitt % (Auto) 7.8 % Eos % (Auto) 1.2 % Baso % (Auto) 1.0 % Neut # (Auto) 3.11 (1.40-6.50) K/uL Lymph # (Auto) 2.33 (1.2-3.4) K/uL Dewitt # (Auto) 0.47 (0.11-0.59) K/uL Eos # (Auto) 0.07 (0-0.50) K/uL Baso # (Auto) 0.06 (0-0.2) K/uL Immature Gran # (Auto) 0.02 (0.01-0.20) K/uL Sodium 139 (136-145) mmol/L Potassium 3.5 (3.5-5.1) mmol/L Chloride 110 H (98-107) mmol/L Carbon Dioxide 26 (21-32) mmol/L Anion Gap 3 (3-11) BUN 6 (6-23) mg/dl Creatinine 0.82 (0.6-1.2) mg/dl Est Cr Clr Drug Dosing 97.2 ml/min Est GFR ( Amer) 105.2 ml/min Est GFR (Non-Af Amer) 90.8 ml/min BUN/Creatinine Ratio 7.3 L (10-20) Glucose 92 (70-99(Fasting)) mg/dl Calcium 8.2 L (8.6-10.3) mg/dl Magnesium 1.9 (1.7-2.4) mg/dl Total Bilirubin 1.6 H (0.2-1.0) mg/dl Direct Bilirubin 0.3 H (0-0.2) mg/dl AST 78 H (13-39) U/L ALT 168 H (7-52) U/L Alkaline Phosphatase 135 H (34-104) U/L Total Protein 5.6 L (6.0-8.3) gm/dl Albumin 3.2 L (3.4-5.0) gm/dl Medications Administered Current Inpatient Medications Acetaminophen (Acetaminophen 325 Mg Tab) 650 mg PO Q4H PRN PRN Reason: pain/fever Stop: 07/31/22 08:43 Hydromorphone HCl (Hydromorphone Inj 0.5 Mg/0.5 Ml Syr) 0.5 mg IV Q3H PRN PRN Reason: Pain Stop: 07/15/22 08:43 Dextrose/Sodium Chloride (D5w And 1/2nss) 1,000 mls @ 125 mls/hr IV .Q8H [facility] Stop: 07/31/22 08:43 Last Admin: 07/02/22 07:49 Dose: 125 mls/hr Piperacillin Sod/Tazobactam (Sod 3.375 gm/ Dextrose) 115 mls @ 28.75 mls/hr IV Q8H [facility]; Protocol Stop: 07/11/22 11:29 Last Infusion: 07/02/22 07:44 Dose: Infused Indomethacin (Indomethacin 50 Mg Supp) 100 mg KS TODAY@0800 [facility] Stop: 07/02/22 23:59 Ondansetron HCl (Ondansetron Inj 2 Mg/Ml 2 Ml Vial) 4 mg IV Q6H PRN PRN Reason: Nausea Stop: 07/31/22 08:43 Last Admin: 07/01/22 08:50 Dose: 4 mg
[2022-07-02] MEDS ORDERED: fentaNYL citrate PF 100 MCG/2 ML VIAL ONE ×2 (10:42→14:49)
[2022-07-02] MEDS ORDERED: PROPOFOL IV EMULSION 10 MG/ML 20 ML VIAL IV ONE (10:42)
[2022-07-02] MEDS ORDERED: MIDAZOLAM HCL 1 MG/ML 2ML VIAL ONE (10:42)
[2022-07-02] MEDS ORDERED: ONDANSETRON INJ 2 MG/ML 2 ML VIAL ONE (10:43)
[2022-07-02] MEDS ORDERED: ROCURONIUM BROMIDE 10 MG/ML 5 ML VIAL IV ONE (10:43)
[2022-07-02] MEDS ORDERED: BUPIVACAINE/EPINEPHRINE 0.25% 1:200,000 30 ML VIAL ONE (13:11)
--- NOTE | 2022-07-02 13:55 | Anesthesiology Consultation ---
Date of Service July 02, 2022 Assessment & Plan (1) Encounter for pre-operative examination: Chart Review Chart Review: Acceptable Risk for Surgery and Patient NOT seen in Pre Admission Testing Consults Requested none History Surgery Operation Date: 07/02/22 07:00 Proposed Procedures p Endoscopic Retrograde Cholangiopancreatogram - Juan R Cortes, DO s Endoscopic Ultrasonography Viviana Cortes DO Operation Date: 07/02/22 14:00 Proposed Procedures p Laparoscopic Cholecystectomy - Manpreet Javier, s Endoscopic Retrograde Cholangiopancreatogram - Juan R Cortes, DO s Endoscopic Ultrasonography Viviana - Juan R Cortes, Height/Weight Height: 5 ft 9 in Weight: 72.7 kg Allergies Allergy/AdvReac Type Severity Reaction Status Date / Time No Known Allergies Allergy Unverified 07/01/22 10:25 Medications Active Medications Generic Name Dose Route Start Last Admin Trade Name Freq PRN Reason Stop Dose Admin Dextrose/Sodium Chloride 1,000 mls @ 125 mls/hr 07/01/22 08:44 07/02/22 07:49 D5w And 1/2nss IV 07/31/22 08:43 125 mls/hr .Q8H JESSICA Administration Piperacillin Sod/Tazobactam 115 mls @ 28.75 mls/hr 07/01/22 11:30 07/02/22 12:50 Sod 3.375 gm/ Dextrose IV 07/11/22 11:29 28.8 mls/hr Q8H JESSICA Administration Protocol Ondansetron HCl 4 mg 07/01/22 08:44 07/01/22 08:50 Ondansetron Inj 2 Mg/Ml 2 Ml Vial IV 07/31/22 08:43 4 mg Q6H PRN Administration Nausea Past Medical History Medical History (Updated 07/02/22 @ 14:36 by Rafy Moreno MD) Acute cholecystitis Exercise / Class Metabolic Activity 1 > 8 Run/Swim/Ski/Tennis Past Anesthesia History No Hx of Anesthesia Complications and No Family Hx of Anesthesia Complications History of PONV No Hx of PONV and No Hx of Motion Sickness Social History Smoking Status: Never smoker Hx Alcohol Use: Yes alcohol intake frequency: holidays/special occasions only Hx Substance Use: No Physical Exam Vital Signs Last Vital Signs Temp 37.2 C 07/02/22 13:20 Pulse 65 07/02/22 13:20 Resp 20 07/02/22 13:20 BP 123/81 07/02/22 13:20 Pulse Ox 97 07/02/22 13:20 O2 Del Method Room Air 07/02/22 13:20 Testing Laboratory Results 07/02/22 05:47 07/02/22 05:47 Urine Color Dark Yellow 07/01/22 04:00 Urine Appearance Cloudy (Clear) A 07/01/22 04:00 Urine pH 5.0 (4.5-7.5) 07/01/22 04:00 Ur Specific [place] 1.026 (1.000-1.030) 07/01/22 04:00 Urine Protein Trace (Negative) H 07/01/22 04:00 Urine Glucose (UA) Negative (Negative) 07/01/22 04:00 Urine Ketones 1+ (Negative) H 07/01/22 04:00 Urine Nitrite Positive (Negative) A 07/01/22 04:00 Ur Leukocyte Esterase 1+ (Negative) H 07/01/22 04:00 Urine WBC (Auto) 1-5 /hpf (0-5) 07/01/22 04:00 Urine RBC (Auto) 0-4 /hpf (0-4) 07/01/22 04:00 U Hyaline Cast (Auto) 5-10 /lpf (0-5) H 07/01/22 04:00 U Epithel Cells (Auto) >30 /lpf (0-5) H 07/01/22 04:00 Urine Bacteria (Auto) 1+ (Negative) H 07/01/22 04:00 07/01/22 04:00 Urine Culture - Final Urine,Clean Catch More than three types of organisms present, all low counts mixed probable skin delta. No further identifications or sensitivities to follow.
[2022-07-02] MEDS ORDERED: SCOPOLAMINE 1 MG TDSY TD ONE (13:59)
--- NOTE | 2022-07-02 14:05 | History & Physical Bridge Note ---
Date of Service July 02, 2022 History & Physical Bridge Note I have examined the patient, reviewed the History & Physical and in the interval since the performance of the History & Physical I have noted the following changes of clinical significance: no changes noted I saw and evaluated the patient we are planning to do upper endoscopy endoscopic ultrasound and possible ERCP for suspected choledocholithiasis. We discussed the risks and benefits to include bleeding infection perforation pain pancreatitis and failed biliary cannulation
[2022-07-02] MEDS ORDERED: METOCLOPRAMIDE HCL INJ 5 MG/ML 2 ML VIAL ONE (14:19)
[2022-07-02] MEDS ORDERED: DEXAMETHASONE SOD INJ 4 MG/ML VIAL ONE (14:19)
--- NOTE | 2022-07-02 14:24 | GI REPORT ---
Patient Name: Kylie Canela Procedure Date: 07/02/2022 1:47 PM Date of : 1985 Admit Type: Inpatient Age: 37 Gender: Female Attending MD: Juan R Cortes DO, Procedure: Upper GI endoscopy Providers: Juan R Cortes DO Referring MD: Howard Krishnan Md, Manpreet Javier Do Indications: Epigastric abdominal pain Medicines: General Anesthesia Complications: No immediate complications. Estimated blood loss: Minimal. Estimated Blood Loss: Estimated blood loss: none. Procedure: Pre-Anesthesia Assessment: - Prior to the procedure, a History and Physical was performed, and patient medications, allergies and sensitivities were reviewed. The patient's tolerance of previous anesthesia was reviewed. - The risks and benefits of the procedure and the sedation options and risks were discussed with the patient. All questions were answered and informed consent was obtained. - Patient identification and proposed procedure were verified prior to the procedure by the physician, the nurse and the clinical psychology teacher. The procedure was verified in the procedure room. - Pre-procedure physical examination revealed no contraindications to sedation. - ASA Grade Assessment: II - A patient with mild systemic disease. - After reviewing the risks and benefits, the patient was deemed in satisfactory condition to undergo the procedure. - The anesthesia plan was to use general anesthesia. - Immediately prior to administration of medications, the patient was re-assessed for adequacy to receive sedatives. - The heart rate, respiratory rate, oxygen saturations, blood pressure, adequacy of pulmonary ventilation, and response to care were monitored throughout the procedure. - The physical status of the patient was re-assessed after the procedure. After obtaining informed consent, the endoscope was passed under direct vision. Throughout the procedure, the patient's blood pressure, pulse, and oxygen saturations were monitored continuously. The Endoscope was introduced through the mouth, and advanced to the third part of duodenum. The upper GI endoscopy was accomplished without difficulty. The patient tolerated the procedure well. Findings: The examined esophagus was normal. The Z-line was regular and was found 38 cm from the incisors. The entire examined stomach was normal. The examined duodenum was normal. Impression: - Normal esophagus. - Z-line regular, 38 cm from the incisors. - Normal stomach. - Normal examined duodenum. - No specimens collected. Recommendation: - Perform an upper endoscopic ultrasound (UEUS) today. Juan R Cortes D.O. Juan R oCrtes, 07/02/2022 2:23:46 PM This report has been signed electronically. Note Initiated On: 07/02/2022 1:47 PM Number of Addenda: 0 I attest to the content of the Intraoperative Record and orders documented therein, exceptions below {[id number]}
[2022-07-02] MEDS ORDERED: fentaNYL citrate PF 100 MCG/2 ML VIAL IV PRN (14:37)
[2022-07-02] MEDS ORDERED: HYDROmorphone INJ 1 MG/ML SYRINGE IV PRN (14:37)
[2022-07-02] MEDS ORDERED: ONDANSETRON INJ 2 MG/ML 2 ML VIAL IV PRN (14:37)
[2022-07-02] MEDS ORDERED: PROMETHAZINE HCL 6.25 MG in SODIUM CHLORIDE 0.9% 50 ML IV PRN (14:37)
[2022-07-02] MEDS ORDERED: ePHEDrine sulfate 50 MG/ML AMP IV PRN (14:37)
[2022-07-02] MEDS ORDERED: ATROPINE SULFATE 0.1 MG/ML 10ML SYR IV PRN (14:37)
--- NOTE | 2022-07-02 15:00 | GI REPORT ---
Patient Name: Kylie Canela Procedure Date: 07/02/2022 1:46 PM Date of : 1985 Admit Type: Inpatient Age: 37 Gender: Female Attending MD: Juan R Cortes DO, Procedure: Upper EUS Providers: Juan R Cortes DO Referring MD: Howard Krishnan Md, Manpreet Javier Do Indications: Elevated liver enzymes, Suspected choledocholithiasis Medicines: General Anesthesia Complications: No immediate complications. Estimated blood loss: Minimal. Estimated Blood Loss: Estimated blood loss was minimal. Procedure: Pre-Anesthesia Assessment: - Prior to the procedure, a History and Physical was performed, and patient medications, allergies and sensitivities were reviewed. The patient's tolerance of previous anesthesia was reviewed. - The risks and benefits of the procedure and the sedation options and risks were discussed with the patient. All questions were answered and informed consent was obtained. - Patient identification and proposed procedure were verified prior to the procedure by the physician, the nurse and the compressed gas tester. The procedure was verified in the procedure room. - Pre-procedure physical examination revealed no contraindications to sedation. - ASA Grade Assessment: II - A patient with mild systemic disease. - After reviewing the risks and benefits, the patient was deemed in satisfactory condition to undergo the procedure. - The anesthesia plan was to use general anesthesia. - Immediately prior to administration of medications, the patient was re-assessed for adequacy to receive sedatives. - The heart rate, respiratory rate, oxygen saturations, blood pressure, adequacy of pulmonary ventilation, and response to care were monitored throughout the procedure. - The physical status of the patient was re-assessed after the procedure. After obtaining informed consent, the endoscope was passed under direct vision. Throughout the procedure, the patient's blood pressure, pulse, and oxygen saturations were monitored continuously. The Scope was introduced through the mouth, and advanced to the third part of duodenum. The upper EUS was accomplished without difficulty. The patient tolerated the procedure well. Findings: ENDOSONOGRAPHIC FINDING: : There was no sign of significant endosonographic abnormality in the ampulla. No pathologic lymphadenopathy and no masses were identified. Two stones were visualized endosonographically in the common bile duct. The stones measured up to 5 mm in greatest dimension. They were hyperechoic and characterized by shadowing. There was mild "upstream" dilation in the common bile duct which measured up to 7 mm. Multiple stones and a large amount of sludge was visualized endosonographically in the gallbladder. They were hyperechoic and characterized by shadowing. The gallbladder wall was markedly thickened measuring 4 mm in many locations. There was also a large amount of pericholecystic fluid noted. There was no sign of significant endosonographic abnormality in the visualized portion of the liver. Homogeneous parenchyma, no focal pathology and no pathologic lymphadenopathy were identified. There was no sign of significant endosonographic abnormality in the entire pancreas. The pancreatic duct measured up to 3 mm in diameter. No masses, no cysts, the pancreatic duct was thin in caliber. There was no sign of significant endosonographic abnormality in the left adrenal gland. No adrenal gland enlargement was identified. No lymph nodes were seen during endosonographic examination in the gastrohepatic ligament (level 18), in the celiac region (level 20) and in the perigastric region. Impression: - There was no sign of significant pathology in the ampulla. - Two stones were visualized endosonographically in the common bile duct. - There was dilation in the common bile duct which measured up to 7 mm. - Multiple stones and sludge was visualized endosonographically in the gallbladder. - Pericholecystic fluid and gallbladder wall thickening noted. - There was no evidence of significant pathology in the visualized portion of the liver. - There was no sign of significant pathology in the entire pancreas. - Endosonographic images of the left adrenal gland were unremarkable. Recommendation: - Perform an ERCP today. Juan R Cortes D.O. Juan R Cortes, 07/02/2022 2:59:56 PM This report has been signed electronically. Note Initiated On: 07/02/2022 1:46 PM Number of Addenda: 0 I attest to the content of the Intraoperative Record and orders documented therein, exceptions below {[id number]}
--- NOTE | 2022-07-02 15:04 | GI REPORT ---
Patient Name: Kylie Canela Procedure Date: 07/02/2022 1:45 PM Date of : 1985 Admit Type: Inpatient Age: 37 Gender: Female Attending MD: Juan R Cortes DO, Procedure: ERCP Providers: Juan R Cortes DO Referring MD: Howard Krishnan Md, Manpreet Javier Do Indications: Abdominal pain of suspected biliary origin, For therapy of bile duct stone(s), Elevated liver enzymes Medicines: General Anesthesia Complications: No immediate complications. Estimated blood loss: Minimal. Estimated Blood Loss: Estimated blood loss was minimal. Procedure: Pre-Anesthesia Assessment: - Prior to the procedure, a History and Physical was performed, and patient medications, allergies and sensitivities were reviewed. The patient's tolerance of previous anesthesia was reviewed. - The risks and benefits of the procedure and the sedation options and risks were discussed with the patient. All questions were answered and informed consent was obtained. - Patient identification and proposed procedure were verified prior to the procedure by the physician, the nurse and the financial aid advisor. The procedure was verified in the procedure room. - Pre-procedure physical examination revealed no contraindications to sedation. - ASA Grade Assessment: II - A patient with mild systemic disease. - After reviewing the risks and benefits, the patient was deemed in satisfactory condition to undergo the procedure. - The anesthesia plan was to use general anesthesia. - Immediately prior to administration of medications, the patient was re-assessed for adequacy to receive sedatives. - The heart rate, respiratory rate, oxygen saturations, blood pressure, adequacy of pulmonary ventilation, and response to care were monitored throughout the procedure. - The physical status of the patient was re-assessed after the procedure. After obtaining informed consent, the scope was passed under direct vision. Throughout the procedure, the patient's blood pressure, pulse, and oxygen saturations were monitored continuously. The Duodenoscope was introduced through the mouth, and advanced to the duodenum and used to inject contrast into the bile duct. The ERCP was accomplished without difficulty. The patient tolerated the procedure well. Findings: The speeder machine operator film was normal. The esophagus was successfully intubated under direct vision without detailed examination of the pharynx, larynx, and associated structures, and upper GI tract. The upper GI tract was grossly normal. The major papilla was normal. The bile duct was deeply cannulated with the short-nosed traction sphincterotome and 0.035 in Angled Acrobat 2 guidewire during the first attempt (PD not injected or cannulated today). Contrast was injected. I personally interpreted the bile duct images. Contrast extended to the hepatic ducts. The main bile duct was mildly dilated, with a stone causing an obstruction. The cystic duct appeared patent with propt filling of the gallbladder revealing stone and sludge material within it. The largest diameter was 9 mm. Biliary sphincterotomy was made with a monofilament Fusion OMNI sphincterotome using ERBE electrocautery. There was no post-sphincterotomy bleeding. To discover objects, the biliary tree was swept with a 12 mm balloon starting at the bifurcation. Two stones were removed. No stones remained. One 10 Fr by 8 cm biliary stent with a single external flap and a single internal flap was placed 8 cm into the common bile duct. Dark bile and sludege flowed through the stent. The stent was in good position. Indomethacin 100 mg was given via suppository to decrease the risk of post-ERCP pancreatitis (PEP). Impression: - Choledocholithiasis was found. Complete removal was accomplished by biliary sphincterotomy and balloon extraction. . - One biliary stent was placed into the common bile duct. - Indomethacin given to decrease risk of post-ERCP pancreatitis. Recommendation: - Avoid aspirin and nonsteroidal anti-inflammatory medicines for 5 days. - Use broad spectrum antibiotics for 10 days. - Repeat ERCP in 6 weeks to remove stent. - cholecystectomy per General Surgery. Juan R Cortes D.O. Juan R Cortes DO 07/02/2022 3:04:21 PM This report has been signed electronically. Note Initiated On: 07/02/2022 1:45 PM Number of Addenda: 0 I attest to the content of the Intraoperative Record and orders documented therein, exceptions below {[id number]}
--- NOTE | 2022-07-02 15:05 | Post Operative Brief Note ---
Immediate Post Op Note v1 Date of Surgery July 02, 2022 Pre & Post Diagnosis Operation Date: 07/02/22 14:00 EGD Endoscopic ultrasound ERCP I identified the patient and participated in the time-out.: Yes Procedure Operation Date: 07/02/22 14:00 EGD Endosocpic ultrasound ERCP Surgeon Juan R Cortes DO Asphalt Tamping Machine Operator none Estimated Blood Loss 0 Findings Consistent with Post-Op Diagnosis
--- NOTE | 2022-07-02 15:06 | Communication Note ---
Date of Service: July 02, 2022 The patient underwent upper endoscopy, endoscopic ultrasound and ultimately ERCP today. The patient was found to have 2 gallstones within the common bile duct. In addition her gallbladder appeared to be filled with stones and sludge material. A biliary sphincterotomy was performed and 2 stones were removed. A biliary stent was placed today. Recommendations Continue IV hydration overnight Continue antibiotic coverage for total of 10 days Cholecystectomy as planned by general surgery Repeat ERCP for biliary stent removal in 6 to 8 weeks Please call with any questions or concerns
[2022-07-02] MEDS ORDERED: NEOSTIGMINE METHYLSULFATE 1 MG/ML 10ML VIAL ONE (15:53)
[2022-07-02] MEDS ORDERED: GLYCOPYRROLATE 0.2 MG/ML VIAL ONE (15:53)
[2022-07-02] MEDS ORDERED: ePHEDrine sulfate 50 MG/ML SYR ONE (15:53)
[2022-07-02] MEDS ORDERED: KETOROLAC 30 MG/ML VIAL ONE (15:54)
--- NOTE | 2022-07-02 15:59 | Post Operative Brief Note ---
PG Immediate Post Op with CF Date of Surgery July 02, 2022 Pre & Post Diagnosis Operation Date: 07/02/22 14:00 Pre-Op Diagnosis: Acute cholecystitis, choledocholithiasis Post-Op Diagnosis: Acute cholecystitis, choledocholithiasis I identified the patient and participated in the time-out.: Yes Procedure Operation Date: 07/02/22 14:00 Actual Procedures p Laparoscopic Cholecystectomy(Not Applicable) - Manpreet Javier DO Surgeon Manpreet Javier DO Hospital Staff Pharmacist Mimi Reyes PA-C Estimated Blood Loss 10 Findings See Below Acutely inflamed edematous gallbladder consistent with acute cholecystitis Specimens Specimen Description: A. Gallbladder Anesthesia Type General Complications none Disposition Disposition: Recovery Room
--- NOTE | 2022-07-02 16:02 | Operative Report ---
PG Post Operative Report Pre & Post Diagnosis Operation Date: 07/02/22 14:00 Pre-Op Diagnosis: Acute cholecystitis, choledocholithiasis Post-Op Diagnosis: Acute cholecystitis, choledocholithiasis I identified the patient and participated in the time-out.: Yes Procedure Operation Date: 07/02/22 14:00 Actual Procedures p Laparoscopic Cholecystectomy(Not Applicable) - Manpreet Javier DO Surgeon Manpreet Javier DO Crime Victim Specialist Mimi Reyes PA-C Estimated Blood Loss 10 Findings See Below Acutely inflamed edematous gallbladder consistent with acute cholecystitis Fluids see anesthesia record Specimens Gallbladder to pathology Drains None Anesthesia Type General Complications none Disposition Disposition: Recovery Room Indications 37-year-old female with acute cholecystitis and choledocholithiasis Description of Procedure The patient had just undergone EUS/ERCP with gastroenterology and was already under general endotracheal anesthesia. At this time she was placed in the supine position with her arms abducted. She was given appropriate pre-operative antibiotics. Her abdomen prepped and draped in the usual sterile fashion. A timeout was called, the procedure was verified as Laparoscopic cholecystectomy, possible open, possible intra-operative cholangiogram. Surgical, nursing and anesthesia teams agreed and the procedure was begun. After injection of 0.25% Marcaine with epinephrine, a supraumbilical vertical incision was made and carried down to the fascia using S-retractors. The abdominal wall was then elevated with towel clamps and abdomen entered using the Veress needle confirming position using the saline drop test. Pneumoperitoneum was established. 5mm trocar was placed. Laparoscope was introduced. No injury from entry into the abdomen was visualized after inspection of the abdomen. Three further ports were placed under direct visualization. One 11mm in the subxiphoid region and two 5mm in the RUQ. At this time the abdomen was inspected and the gallbladder identified. The gallbladder fundus was grasped and retracted cephalad. The gallbladder itself was dilated and severely edematous consistent with acute cholecystitis. The gallbladder infundibulum was then grasped and retracted laterally. The cystic duct and cystic artery were then identified and skeletonized. The critical view of safety was obtained. They were both then clipped twice proximally and once distally and then divided using scissors. The gallbladder was then taken off of the liver bed using electrocautery and placed in an endocatch bag and removed from the subxiphoid port. The liver bed was then inspected and no bile leak or bleeding was evident. The subxiphoid port was then closed using 0-Vicryl using the suture passer.The trocars were then removed under direct visualization and no bleeding was present. Abdomen was desufflated. The skin was then closed using 4-0 Monocryl in a subcuticular fashion. Surgical glue was applied. Needle and sponge counts were correct x 2. At this time the patient was awoken from anesthesia and extubated having remained stable throughout the entire case. The patient was then transported to PACU in stable condition. The physician medical administrative assistant was present scrubbed for the entire case. She was essential in positioning, prepping and draping the patient, driving the laparoscope, retraction and exposure, closure of the incisions and placement of the dressings. I attest to the content of the Intraoperative Record and any orders documented therein. Any exceptions are noted below.
--- NOTE | 2022-07-02 16:35 | Anesthesiology Progress Note ---
Date of Service July 02, 2022 Anesthesia Post Procedure Vital Signs Vital Signs: Temp Pulse Pulse Resp BP BP Pulse Ox 07/02/22 16:30 85 17 128/74 100 07/02/22 16:20 77 16 128/71 100 07/02/22 16:10 97.3 F L 84 15 121/82 100 07/02/22 13:20 99.0 F 65 20 123/81 97 07/02/22 10:37 98.8 F 56 L 16 103/66 100 07/02/22 07:42 98.1 F 69 16 103/66 100 07/01/22 21:57 98.4 F 81 16 101/63 94 O2 Del Method O2 Flow Rate 07/02/22 16:30 Nasal Cannula 2 07/02/22 16:20 Nasal Cannula 2 07/02/22 16:10 Nasal Cannula 4 07/02/22 13:20 Room Air 07/02/22 10:37 Room Air 07/02/22 07:42 Room Air 07/01/22 21:57 Room Air Transfer of Care Handoff Completed per policy Notes Mental Status: alert / awake / arousable and participated in evaluation Patient Amnestic to Procedure: Yes Nausea / Vomiting: adequately controlled Pain: adequately controlled Airway Patency, RR, SpO2: stable & adequate BP & HR: stable & adequate Hydration State: stable & adequate Anesthetic Complications: no major complications apparent and Pt Satisfied with anesthetic care
[2022-07-02] MEDS ORDERED: MoRPHine SULFATE 2 MG/ML CARP IV PRN (16:50)
[2022-07-02] MEDS ORDERED: MoRPHine SULFATE 4 MG/ML 1 ML CARP\\VIAL IV PRN (16:50)
[2022-07-02] MEDS ORDERED: oxyCODONE HCL IR 5 MG TAB (IMMEDIATE RELEASE) PO PRN (16:50)
[2022-07-02] MEDS: POTASSIUM CHLORIDE / WTR 10 MEQ/100 ML PLCT IV SCH ×3 (16:53→17:55)
[2022-07-02] MEDS ORDERED: Nursing to Pharmacy Communication SCH (17:15)
--- NOTE | 2022-07-02 21:02 | Fluoroscopy Report ---
FL ERCP biliary ductal CLINICAL HISTORY: ERCP TECHNIQUE: 9 views were obtained with the C-arm in the OR with the above procedure. Total fluoroscopy time was 34.7 seconds. Radiation dose was 5.08 mGy. Comparison: None available at the time of this dictation. FINDINGS/IMPRESSION: Intraoperative images were obtained of ERCP with stent placement. In the final i mage the stent is in satisfactory position. Please correlate with intraoperative fluoroscopy and operative report. ACT 112: Negative or not required by law. Electronically signed by: Khang Singleton M.D. 07/02/2022 9:00 PM
[2022-07-02] MEDS: oxyCODONE HCL IR 5 MG TAB (IMMEDIATE RELEASE) PO PRN (23:04)
[2022-07-03] MEDS: PIPERACILLIN/TAZOBACTAM 3.375 GM in DEXTROSE 5% 100 ML IV SCH ×2 (01:35→09:31)
[2022-07-03] MEDS: oxyCODONE HCL IR 5 MG TAB (IMMEDIATE RELEASE) PO PRN ×2 (05:26→17:12)
[2022-07-03] MEDS: D5W AND 1/2NSS 1,000 ML IV SCH ×2 (05:26→13:35)
[2022-07-03 07:14] LABS: Basophils # (auto) 0.01 K/uL (0-0.2); Basophils % (auto) 0.1 %; Hematocrit (blood only) 30.4 % (37.0-47.0); Hemoglobin 10.1 g/dl (12.0-16.0); Immature Granulocytes # (auto) 0.04 K/uL (0.01-0.20); Immature Granulocytes % (auto) 0.4 %; Lymphocytes # (auto) 1.17 K/uL (1.2-3.4); Lymphocytes % (auto) 10.7 %; Mean Corpuscular Hemoglobin 28.4 pg (25.0-34.0); Mean Corpuscular Hgb Conc 33.2 g/dL (32.0-36.0); Mean Corpuscular Volume 85.4 fL (80.0-100.0); Mean Platelet Volume 11.9 fL (9.4-12.4); Monocytes # (auto) 0.63 K/uL (0.11-0.59); Monocytes % (auto) 5.8 %; Neutrophils # (auto) 9.08 K/uL (1.40-6.50); Platelet Count 279 K/uL (130-400); RDW Coefficient of Variation 12.4 % (11.5-14.5); RDW Standard Deviation 38.7 fL (36.4-46.3); Red Blood Count 3.56 M/uL (4.20-5.40); White Blood Count 10.93 K/ul (4.8-10.8)
[2022-07-03 07:16] LABS: Albumin Globulin Ratio 1.4 (0.9-2); Albumin Level 3.4 gm/dl (3.4-5.0); BUN Creatinine Ratio 6.8 (10-20); Bilirubin,Total 1.2 mg/dl (0.2-1.0); Calcium 8.6 mg/dl (8.6-10.3); Creatinine Clr Calc Pharmacy 109.2 ml/min; Est GFR (African American) 121.1 ml/min; Est GFR (Non-African American) 104.5 ml/min; Globulin 2.4 gm/dl (2.5-4.0); Magnesium 1.7 mg/dl (1.7-2.4); Phosphorus 3.1 mg/dl (2.5-4.9); Potassium 3.8 mmol/L (3.5-5.1); Total Protein 5.8 gm/dl (6.0-8.3)
--- NOTE | 2022-07-03 09:00 | Hospitalist Progress Note ---
Date of Service July 03, 2022 Assessment & Plan (1) Acute cholecystitis: (2) Elevated liver enzymes: (3) Abdominal pain, acute: (4) Biliary colic: Plan: This is a 37-year-old female who presents with RUQ abdominal pain and found to have elevated LFTs, urinary tract infection and possible cholecystitis 1. Abdominal pain, choledocholithiasis , acute cholecystitis, elevated lft's . Surgery and GI consulted. IV fluids, IV Zosyn, IV antiemetics prn, IV Dilaudid p.r.n. AST, ALT trending dowm, tbili trending down S/p ERCP/ cholecystectomy yesterday (07/02) Findings: The examined esophagus was normal. The Z-line was regular and was found 38 cm from the incisors. The entire examined stomach was normal. The examined duodenum was normal. Impression: - Normal esophagus. - Z-line regular, 38 cm from the incisors. - Normal stomach. - Normal examined duodenum. - No specimens collected. Recommendation: - Perform an upper endoscopic ultrasound (UEUS) today. Per GI - 07/02/22 - The patient underwent upper endoscopy, endoscopic ultrasound and ultimately ERCP today. The patient was found to have 2 gallstones within the common bile duct. In addition her gallbladder appeared to be filled with stones and sludge material. A biliary sphincterotomy was performed and 2 stones were removed. A biliary stent was placed today. Continue antibiotic coverage for total of 10 days Repeat ERCP for biliary stent removal in 6 to 8 weeks 07/03/22 Tolerating clear liquid diet this AM and was advanced by surgery Now tolerating advanced diet and pain seems to controlled Pt interested in going home - ok to DC per surgery 2. Urinary tract infection on Zosyn as above. Ucultx - mixed delta. Abx as above. 3. Uterine lesions. Fibroids? Needs followup. DVT prophylaxis, SCDs for now. Admission and Anticipated Discharge Date Admission Date: July 01, 2022 Subjective Pt seen in follow up of RUQ pain Now s/p ERCP and cholecystectomy yesterday Currently sitting up in bed in NAD, however reports some right upper quadrant pain, and back pain Currently on clear liquid diet and tolerating Per surgery can advance diet Continued on IV antibiotic She is alert oriented, answering appropriately. Denies any fevers chills, chest pain shortness of breath. Family at the bedside and updated. Review of Systems Review of Systems: All systems reviewed & are unremarkable except as noted in Subjective Physical Exam Physical Exam: GENERAL:slim young F in NAD. HEENT: NC/AT. EOMI. Pupils equal, round and reactive to light. Oral mucosa mo ist. NECK: No JVD or neck masses. CARDIOVASCULAR: S1 and S2 heard. Regular rate and rhythm. No murmur, no gallop. RESPIRATORY: Normal AP diameter. No accessory muscle use. No wheezing, no crackles. ABDOMEN: Soft, bowel sounds present, nontender, no distention. NEURO:Awake alert oriented, speech fluent, moves extremities EXTREMITIES: No edema, no erythema. Results & Data Results & Data Vital Signs (Past 12 Hours) Vital Signs Temp Pulse Pulse Resp BP Pulse Ox O2 Del Method 07/03/22 07:40 36.8 C 51 L 18 105/67 99 Room Air 07/03/22 03:30 36.5 C 60 18 96/60 L 98 Room Air 07/02/22 21:00 Room Air 07/02/22 22:17 36.8 C 60 18 119/72 99 Room Air Laboratory Results 07/03/22 07/03/22 Range/Units 06:06 06:06 WBC 10.93 H (4.8-10.8) K/ul RBC 3.56 L (4.20-5.40) M/uL Hgb 10.1 L (12.0-16.0) g/dl Hct 30.4 L (37.0-47.0) % MCV 85.4 (80.0-100.0) fL MCH 28.4 (25.0-34.0) pg MCHC 33.2 (32.0-36.0) g/dL RDW Std Deviation 38.7 (36.4-46.3) fL RDW Coeff of Hipolito 12.4 (11.5-14.5) % Plt Count 279 (130-400) K/uL MPV 11.9 (9.4-12.4) fL Immature Gran % (Auto) 0.4 % Neut % (Auto) 83.0 % Lymph % (Auto) 10.7 % Stephenson % (Auto) 5.8 % Eos % (Auto) 0.0 % Baso % (Auto) 0.1 % Neut # (Auto) 9.08 H (1.40-6.50) K/uL Lymph # (Auto) 1.17 L (1.2-3.4) K/uL Stephenson # (Auto) 0.63 H (0.11-0.59) K/uL Eos # (Auto) 0.00 (0-0.50) K/uL Baso # (Auto) 0.01 (0-0.2) K/uL Immature Gran # (Auto) 0.04 (0.01-0.20) K/uL Sodium 138 (136-145) mmol/L Potassium 3.8 (3.5-5.1) mmol/L Chloride 109 H (98-107) mmol/L Carbon Dioxide 24 (21-32) mmol/L Anion Gap 5 (3-11) BUN 5 L (6-23) mg/dl Creatinine 0.73 (0.6-1.2) mg/dl Est Cr Clr Drug Dosing 109.2 ml/min Est GFR ( Amer) 121.1 ml/min Est GFR (Non-Af Amer) 104.5 ml/min BUN/Creatinine Ratio 6.8 L (10-20) Glucose 106 H (70-99(Fasting)) mg/dl Calcium 8.6 (8.6-10.3) mg/dl Phosphorus 3.1 (2.5-4.9) mg/dl Magnesium 1.7 (1.7-2.4) mg/dl Total Bilirubin 1.2 H (0.2-1.0) mg/dl AST 30 (13-39) U/L ALT 115 H (7-52) U/L Alkaline Phosphatase 121 H (34-104) U/L Total Protein 5.8 L (6.0-8.3) gm/dl Albumin 3.4 (3.4-5.0) gm/dl Globulin 2.4 L (2.5-4.0) gm/dl Albumin/Globulin Ratio 1.4 (0.9-2) Medications Administered Current Inpatient Medications Acetaminophen (Acetaminophen 325 Mg Tab) 650 mg PO Q4H PRN PRN Reason: pain/fever Stop: 07/31/22 08:43 Last Admin: 07/02/22 21:18 Dose: 650 mg Dextrose/Sodium Chloride (D5w And 1/2nss) 1,000 mls @ 125 mls/hr IV .Q8H [facility] Stop: 07/31/22 08:43 Last Admin: 07/03/22 05:26 Dose: 125 mls/hr Piperacillin Sod/Tazobactam (Sod 3.375 gm/ Dextrose) 115 mls @ 28.75 mls/hr IV Q8H JESSICA; Protocol Stop: 07/11/22 11:29 Last Infusion: 07/03/22 05:27 Dose: Infused Morphine Sulfate (Morphine Sulfate 2 Mg/Ml Carp) 2 mg IV Q2H PRN PRN Reason: moderate pain Stop: 07/16/22 16:49 Morphine Sulfate (Morphine Sulfate 4 Mg/Ml 1 Ml Carp\Vial) 4 mg IV Q4H PRN PRN Reason: severe pain Stop: 07/16/22 16:49 Ondansetron HCl (Ondansetron Inj 2 Mg/Ml 2 Ml Vial) 4 mg IV Q6H PRN PRN Reason: Nausea Stop: 07/31/22 08:43 Last Admin: 07/01/22 08:50 Dose: 4 mg Oxycodone HCl (Oxycodone Hcl Ir 5 Mg Tab (Immediate Release)) 5 mg PO Q4H PRN PRN Reason: Moderate Pain (Scale 4, 5, 6) Stop: 07/16/22 16:49 Last Admin: 07/03/22 05:26 Dose: 5 mg Oxycodone HCl (Oxycodone Hcl Ir 5 Mg Tab (Immediate Release)) 10 mg PO Q4H PRN PRN Reason: Severe Pain (Scale 7, 8, 9,10) Stop: 07/16/22 16:49
--- NOTE | 2022-07-03 09:54 | Gastroenterology Progress Note ---
Date of Service July 03, 2022 Assessment & Plan (1) Elevated liver enzymes: (2) Abdominal pain, acute: Plan: PT is a 37 yo female w symptoms of upper abd pain, n/v thats been intermittent over the last month but worse after dinner last night. LFTs up, normal lipase. Abd imaging studies w CT and US showed gallstones, some on gallbladder neck, gallbladder wall thickening. CBD 6mm. Underwent EGD/EUS/ERCP followed by tia oshea yesterday. She is found to have 2 common bile duct stone that was removed during her ERCP, biliary sphincterotomy done, biliary stent placed. Her LFTs are trending down. - Diet per Surgery - Trend LFTs - Continue antibiotics coverage for 10 days - Avoid NSAIDs and ASA for 5 days after sphinceterotomy - Repeat ERCP for biliary stent removal in 6 weeks' time - GI to sign off; pls recall prn Admission and Anticipated Discharge Date Admission Date: July 01, 2022 Supervising Physician Co-Signing Physician Notes Attending attestation I have seen, examined this patient, and agree with the findings and above by our mid-level provider RUSTY Alvares, with the following additions: s/p ERCP with stone removal Plan for repeat for stent removal Diet and D/C per General surgery Subjective Patient having mild abdominal pain and back pain. Denies any nausea or vomiting. Tolerating clear liquids for breakfast. Is passing some flatus. No bowel movements. Review of Systems Review of Systems: All systems reviewed & are unremarkable except as noted in HPI & below Physical Exam Constitutional: WD/WN, vitals as above well groomed, cooperative and comfortable Eyes: PERRL, conjunctivae normal, anicteric sclerae ENMT: external ear and nose normal, oropharynx normal Respiratory: normal respiratory effort, lungs clear to auscultation Cardiovascular: RRR, no murmur, no edema Gastrointestinal (Abdomen): Soft, tender to palpation, trocar insertion sites covered with dressing clean dry and intact. Bowel sounds hypoactive Skin: no rashes, warm and dry no jaundice Psychiatric: A+Ox3, euthymic affect Lymphatic: no lymphedema Results & Data Vital Signs (Past 12 Hours) Vital Signs Temp Pulse Pulse Resp BP Pulse Ox O2 Del Method 07/03/22 07:40 36.8 C 51 L 18 105/67 99 Room Air 07/03/22 03:30 36.5 C 60 18 96/60 L 98 Room Air 07/02/22 22:17 36.8 C 60 18 119/72 99 Room Air
--- NOTE | 2022-07-03 12:49 | Surgery Progress Note ---
Date of Service July 03, 2022 Assessment & Plan (1) Acute cholecystitis: Plan: She is postoperative day 1 laparoscopic cholecystectomy and EUS/ERCP for choledocholithiasis She is doing well tolerating clear liquids, advance as tolerated If she tolerates her diet she can be discharged from a surgical standpoint I will make sure my office reaches out and she can follow-up in 2 weeks (2) Choledocholithiasis: Admission and Anticipated Discharge Date Admission Date: July 01, 2022 Subjective Patient seen and examined. Abdominal pain is much improved. Afebrile. She is been tolerating clear liquids. Physical Exam Constitutional: WD/WN, vitals as above Gastrointestinal (Abdomen): Inspection/Auscultation: abdomen normal to inspection; abdomen not distended Dressings clean dry and intact Results & Data Vital Signs (Past 12 Hours) Vital Signs Temp Pulse Pulse Resp BP Pulse Ox O2 Del Method 07/03/22 11:44 36.7 C 47 L 18 112/73 Room Air 07/03/22 11:00 36.6 C 53 L 20 99/67 L 99 Room Air 07/03/22 07:40 36.8 C 51 L 18 105/67 99 Room Air 07/03/22 03:30 36.5 C 60 18 96/60 L 98 Room Air PG Care Time/CCT Total # of Minutes Spent Total Time Spent with Patient: Total time spent is greater than 50% in coordination of care (as documented) at patient's floor/unit and/or counseling patient: Coding Level of Care Code 16477 Post Operative Follow-Up Diagnoses Acute cholecystitis K81.0 Choledocholithiasis K80.50
--- NOTE | 2022-07-03 16:32 | Discharge Summary ---
Date of Service July 03, 2022 Admission HPI Per Admitting Provider A 37-year-old female with no significant past medical history who presents with severe abdominal pain in the right upper abdomen radiating to the flank region. Patient states pain was going on and off for some time, but tonight it became severe associated with nausea and vomiting that is the reason she came to the hospital. She also has some constipation. Denies any blood in stool or black stools. Normal bladder movements. No hematuria. Currently resting and hemodynamically stable. Denies any chest pain, no shortness of breath. No cough. Has some runny nose from allergies. No sore throat, no headache, no blurred visions. Admission Exam Per Admitting Provider GENERAL: The patient is of moderate build, not in acute distress. VITAL SIGNS: Temperature 36, pulse 60, respiratory rate 16, blood pressure 126/79, oxygen 100% on room air. HEENT: Pupils equal, round and reactive to light. Oral mucosa moist. NECK: No JVD or neck masses. CARDIOVASCULAR: S1 and S2 heard. Regular rate and rhythm. No murmur, no gallop. RESPIRATORY SYSTEM: Normal AP diameter. No accessory muscle use. No wheezing, no crackles. ABDOMEN: Soft, bowel sounds present, nontender, no distention. CENTRAL NERVOUS SYSTEM: Cranial nerves II-XII grossly intact, nonfocal. EXTREMITIES: No edema, no erythema. Principal Diagnosis Choledocholithiasis Acute cholecystitis s/p laparoscopic cholecystectomy Discharge Exam GENERAL:slim young F in NAD. HEENT: NC/AT. EOMI. Pupils equal, round and reactive to light. Oral mucosa moist. NECK: No JVD or neck masses. CARDIOVASCULAR: S1 and S2 heard. Regular rate and rhythm. No murmur, no gallop. RESPIRATORY: Normal AP diameter. No accessory muscle use. No wheezing, no crackles. ABDOMEN: Soft, bowel sounds present, nontender, no distention. NEURO:Awake alert oriented, speech fluent, moves extremities EXTREMITIES: No edema, no erythema. Discharge Data Allergies Allergy/AdvReac Type Severity Reaction Status Date / Time No Known Allergies Allergy Unverified 07/01/22 10:25 Consultations 07/01/22 06:12 ED Decision to Admit Stat 07/01/22 08:44 Consult Gastroenterology Routine Consult General Surgery Routine Procedures Performed Operation Date: 07/02/22 14:00 Actual Procedures p Laparoscopic Cholecystectomy(Not Applicable) - Manpreet Javier, DO s Endoscopic Retrograde Cholangiopancreatography in Operating Room(Not Applicable) - Juan R Cortes, DO s Esophagogastroduodenoscopy(Not Applicable) - Juan R Cortes, DO s Endoscopic Ultrasonography Upper(Not Applicable) - Juan R Cortes, DO Ordered Studies 07/01/22 03:13 CT abd pelvis IV con only Stat FINDINGS: Lung bases are unremarkable. No pneumatosis, free air or portal venous gas is present. Periportal edema is noted. There is no biliary or pancreatic ductal dilatation. Spleen, adrenal glands, kidneys and pancreas are unremarkable. The gallbladder is mildly distended. There is mild gallbladder wal l thickening. There is no evidence for a bowel obstruction. The appendix is partially visualized. Visualized portions are normal. Suspected dominant follicle within the right ovary is noted. Multiple uterine lesions are noted, including a 3.1 cm fundal hypodense lesion with peripheral enhancement. There is also a 3.2 cm right neural lesion within the uterine body. The uterus is mildly enlarged. There are no acute fractures. Major vasculature is patent. IMPRESSION: 1. Mild gallbladder distention with mild gallbladder wall thickening. Acute cholecystitis cannot be excluded. A hepatobiliary scan could be obtained as indicated. 2. Periportal edema. No definite biliary ductal dilatation. 3. No bowel obstruction. Appendix partially obscured but visualized portions normal. 4. Uterine lesions which statistically reflect fibroids. Nonemergent pelvic ultrasound is recommended. 07/01/22 04:36 US gallbladder Stat FINDINGS: No hepatic lesions are identified. No biliary ductal dilatation is noted. Caliber of the common bile duct is normal, measuring 6 mm. Multiple gallstones are noted within the gallbladder. There are stones within the gallbladder neck. The gallbladder is distended. Gallbladder wall thickening and pericholecystic fluid is noted. The wall is edematous. The wall measures 3 mm in thickness. There is also sludge within the gallbladder. Suspected adenomyomatosis within the gallbladder wall is noted. Sonographic Arredondo sign could not be assessed for in this patient. There is no right hydronephrosis. A 5 mm echogenic lesion within the cortex of the midpole the right kidney is indeterminate but may reflect a small angiomyolipoma. No correlate is identified on the CT. IMPRESSION: 1. Cholelithiasis with mild gallbladder wall thickening and trace pericholecystic fluid. Mildly distended gallbladder. Acute cholecystitis cannot be excluded. A hepatobiliary scan could be obtained as indicated. 2. No biliary ductal dilatation. 07/02/22 [place] ERCP biliary ductal Routine 07/02/22 13:44 US upper EUS PACS images Routine Hospital Course (1) Acute cholecystitis: (2) Elevated liver enzymes: (3) Abdominal pain, acute: (4) Biliary colic: This is a 37-year-old female who presents with RUQ abdominal pain and found to have elevated LFTs, urinary tract infection and possible cholecystitis 1. Abdominal pain, choledocholithiasis , acute cholecystitis, elevated lft's . Surgery and GI consulted. IV fluids, IV Zosyn, IV antiemetics prn, IV Dilaudid p.r.n. AST, ALT trending dowm, tbili trending down S/p ERCP/ cholecystectomy yesterday (07/02) Findings: The examined esophagus was normal. The Z-line was regular and was found 38 cm from the incisors. The entire examined stomach was normal. The examined duodenum was normal. Impression: - Normal esophagus. - Z-line regular, 38 cm from the incisors. - Normal stomach. - Normal examined duodenum. - No specimens collected. Recommendation: - Perform an upper endoscopic ultrasound (UEUS) today. Per GI - 07/02/22 - The patient underwent upper endoscopy, endoscopic ultrasound and ultimately ERCP today. The patient was found to have 2 gallstones within the common bile duct. In addition her gallbladder appeared to be filled with stones and sludge material. A biliary sphincterotomy was performed and 2 stones were removed. A biliary stent was placed today. Continue antibiotic coverage for total of 10 days Repeat ERCP for biliary stent removal in 6 to 8 weeks 07/03/22 Tolerating clear liquid diet this AM and was advanced by surgery Now tolerating advanced diet and pain seems to controlled Pt interested in going home - ok to DC per surgery 2. Urinary tract infection on Zosyn as above. Ucultx - mixed delta. Abx as above. 3. Uterine lesions. Fibroids? Needs followup. Total Time Total Time Spent Total Time Spent (In Minutes): 40 Discharge Plan Discharge Items Patient Disposition: Home - Self-Care Reason For Visit: ABDOMINAL PAIN Discharge Diagnosis: Choledocholithiasis Acute cholecystitis s/p laparoscopic cholecystectomy Condition on Discharge: Good Activity: Per Instructions section Lifting: No more than 10 pounds Bathing Comment: may shower starting 07/03/22; no soaking in tubs/pools Exercise/Sports: Wait until after follow-up appointment Driving/Machine Use: no driving while taking narcotics for pain Non-emergency contact: Surgeon Call non-emergency contact if: you have any medication questions, your symptoms worsen, your pain is not controlled, your pain is concerning for you, you have a fever, your temperature is above 101.5, your wound has increased redness, your wound has increased drainage and your wound pain has increased Follow-up/Referrals: Manpreet Javier DO [Physician] - (Please call to schedule follow up in clinic within 2 weeks ) Ketan Martinez MD [Primary Care Provider] - (Date & Time 07/09/2022 11:20 AM Provider Ketan Martinez MD Department Family Medicine [facility] ) Diet: Regular Addtl Attending Provider Instructions: Follow-up with primary care doctor, and surgeon. The appointment with your primary care doctor was scheduled for you for July 09. Continue antibiotic, Augmentin, for next 9 days, as prescribed. You will need follow-up ERCP for stent removal in 6 to 8 weeks. For pain you can take Tylenol 1000 mg 3 times a day, max daily dose is 3000 mg. For more severe pain, you can take oxycodone, as needed, as prescribed. Addtl Cardroom Drawing Runner Provider Instructions: Per surgeon: You may remove your outer surgical dressings on 07/04/22 and shower. You will have small white bandages on underneath called steri strips. You may shower with these on. They will tend to fall off on their own within 7-10 days. Pending Studies at Discharge: Yes Studies:: surgical pathology Stand-Alone Forms: My [facility] Launchr, Smoking Cessation Medications and DC Order Prescriptions: New oxycodone 5 mg tablet 5 - 10 mg PO .[id number] PRN (Reason: pain, for initial therapy, max 6 tabs per day) Qty: 15 0RF amoxicillin-pot clavulanate 875-125 mg tablet 1 tab PO BID 9 Days Qty: 18 0RF Discharge Orders: Discharge Order (Routine); Ordered 07/03/22 Ordered By: Howard Krishnan Admission Data Admit Date/Time: 07/01/22 05:57 Attending Provider: Howard Krishnan Admit Provider: Brenton Betts Primary Care Provider: Ketan Martinez Other Providers: Brenton Betts ; Costa Thakur ; Cole Fulton ; Faye Newman ; Fiordaliza Dawson ; Judi Jason ; Ban Wilcox ; Dmitriy Bean ; Jose C Rankin ; Juan R Cortes ; Talia Rosario ; Nishant Perry ; Katia Moralez ; Reva Figueroa ; Susie Kolb ; Laura Hood ; Coby Mandel ; Emil Mcconnell ; Luis E Titus ; Alee Day ; Lisbeth Mendoza Jr ; Lazaro Alexis ; Scot Morrison ; Rita Triana ; Jayshree Cortes ; Christopher Avina ; Heron Garcia ; Lena Levine ; Fiordaliza Barksdale ; Elmo Stewart Jr ; Dain Lugo ; Dom Andrade ; Laura Daniel
== END 2022-07-03 17:45 | disposition home or self-care (01) ==
LOC: ED 02:48 → INTOOBSV 05:57 → 3W 05:57